=== PATIENT | female | born 1950 | race Caucasian/White ===

== ENCOUNTER 2022-11-19 04:22 | Day surgery (SDC) | payer BC, OTHER ==
[2022-11-17 12:41] VITALS: BMI 27.9
[2022-11-19 13:14] VITALS: RESP 18
[2022-11-19] MEDS ORDERED: LIDOCAINE HCL 1%, 10 MG/ML (20ML VIAL) ONE (14:41)
[2022-11-19] MEDS ORDERED: BUPIVACAINE HCL/PF 0.5% (5MG/ML) 10 ML VIAL ONE (14:42)
[2022-11-19] MEDS ORDERED: MIDAZOLAM HCL 2 MG/2 ML SINGLE DOSE VIAL ONE (14:53)
[2022-11-19] MEDS ORDERED: LIDOCAINE HCL 1%, 10 MG/ML (20ML VIAL) INF ONE ×3 (15:02)
[2022-11-19] MEDS ORDERED: PROMETHAZINE HCL 25 MG/1 ML VIAL IVPB PRN (15:36)
[2022-11-19] MEDS ORDERED: ONDANSETRON 4 MG/2 ML VIAL IVPUSH PRN (15:36)
[2022-11-19] MEDS ORDERED: oxyCODONE HCL 5 MG TABLET PO PRN (15:36)
[2022-11-19] MEDS ORDERED: LACTATED RINGERS SOLUTION 1,000 ML IV SCH (15:45)
[2022-11-19] MEDS ORDERED: BUPIVACAINE HCL/PF 0.5% (5MG/ML) 10 ML VIAL IJ ONE ×3 (16:12)
[2022-11-19 17:37] VITALS: BP 102/60; PULSE 68; TEMP 97.3
== END 2022-11-19 18:30 | disposition home or self-care (01) ==
LOC: JASU-SURG 04:22
PROVIDERS: ATTEND Podiatrist Foot Surgery
PROC: 0QBP0ZZ Excision of Left Metatarsal, Open Approach (ICD-10-PCS; principal; 2022-11-19 15:00)
DX: M21.612 Bunion of left foot (principal)
CPT/HCPCS: 88305-TC; 88311-TC